=== PATIENT | female | born 1950 | race Caucasian/White ===

== ENCOUNTER 2016-12-20 07:22 | Day surgery (SDC) | payer MEDICARE ==
[~2016-12-20] VITALS: Ht 157.5 cm; Wt 70.0 kg
[~2016-12-20 07:22] MED LIST: ACYC-114 PO; LENA10CA PO; LEVO100T5 PO; LORA2ORA2 PO; ROSU10TA PO; VENL75CA PO; [UNRECOGNIZED DRUG - OTHER]; aspirin PO; vitamin D3
[2016-12-20 08:00] VITALS: BP 119/71
[2016-12-20] MEDS ORDERED: FENTANYL PF 100 MCG/2ML ONE ×2 (08:41→08:42)
[2016-12-20] MEDS ORDERED: MIDAZOLAM 1 MG/ML, 5ML ONE (08:41)
[2016-12-20] MEDS ORDERED: FLUMAZENIL 0.1 MG/1 ML, 5ML ONE (08:42)
[2016-12-20] MEDS ORDERED: NALOXONE 1 MG/ML, 2ML ONE (08:42)
[2016-12-20] MEDS ORDERED: LIDOCAINE 1%, 20ML ONE (08:46)
== END 2016-12-20 17:00 | disposition home or self-care (01) ==
LOC: OUT 07:22
PROVIDERS: ATTEND Specialist
DX: D61.818 Other pancytopenia (principal); E03.9 Hypothyroidism, unspecified; F32.9 Major depressive disorder, single episode, unspecified; Z90.710 Acquired absence of both cervix and uterus; Z98.51 Tubal ligation status; Z82.0 Family history of epilepsy and other diseases of the nervous system
CPT/HCPCS: 36415; 38221; 77012; 85025; 85097; 88237; 88264; 88280; 88305; 88311; 88341; 88342; 88360; G0364; J2250; J3010; J3490; 88313; 99156; 99157; G0461; J2310

== ENCOUNTER 2017-01-09 22:56 | Emergency (ER) | payer MEDICARE ==
[~2017-01-09] VITALS: Ht 157.5 cm; Wt 74.1 kg
[2017-01-10 01:23] LABS: BLOOD UREA NITROGEN 20 mg/dL (7-18)
[2017-01-10 02:24] VITALS: BP 136/71
[2017-01-10 02:29] LABS: PATH.CAST-FLAG NOT PRESENT; SPERM-FLAG NOT PRESENT; SRC-FLAG NOT PRESENT; XTAL-FLAG NOT PRESENT; YLC-FLAG NOT PRESENT
== END 2017-01-10 02:26 | disposition home or self-care (01) ==
LOC: ED 01-10 02:20
DX: R50.9 Fever, unspecified (principal); R21 Rash and other nonspecific skin eruption; E03.9 Hypothyroidism, unspecified
CPT/HCPCS: 36415; 80048; 81001; 82040; 85025; 87040; 87086; 99284

== ENCOUNTER 2017-04-24 05:58 | Day surgery (SDC) | payer MEDICARE ==
[~2017-04-24] VITALS: Ht 157.5 cm; Wt 69.4 kg
[2017-04-24] MEDS ORDERED: SODIUM CHLORIDE 0.9% 1,000 ML IV SCH (06:53)
[2017-04-24] MEDS ORDERED: LEVO88TA4 PO (06:56)
[2017-04-24] MEDS ORDERED: ROSU20TA PO (06:56)
[2017-04-24] MEDS ORDERED: ASPI-496 PO (06:56)
[2017-04-24] MEDS ORDERED: VENL37.52 PO (06:56)
[2017-04-24 06:57] VITALS: BP 147/76
[2017-04-24 07:13] LABS: HEMATOCRIT 38.7 % (34.6-47.8); HEMOGLOBIN 12.7 g/dL (11.7-16.4); WHITE BLOOD COUNT 5.6 x10^3/uL (3.4-10)
[2017-04-24] MEDS ORDERED: LIDOCAINE 1%, 20ML ONE (08:14)
[2017-04-24] MEDS ORDERED: FENTANYL PF 100 MCG/2ML ONE (08:15)
[2017-04-24] MEDS ORDERED: MIDAZOLAM 1 MG/ML, 5ML ONE (08:16)
[2017-04-24] MEDS ORDERED: NALOXONE 1 MG/ML, 2ML ONE (08:16)
[2017-04-24] MEDS ORDERED: FLUMAZENIL 0.1 MG/1 ML, 5ML ONE (08:16)
== END 2017-04-24 10:15 | disposition home or self-care (01) ==
LOC: OUT 05:58
PROVIDERS: ATTEND Specialist
DX: C90.00 Multiple myeloma not having achieved remission (principal); F32.9 Major depressive disorder, single episode, unspecified; E03.9 Hypothyroidism, unspecified; Z98.51 Tubal ligation status; Z98.890 Other specified postprocedural states; Z90.710 Acquired absence of both cervix and uterus
CPT/HCPCS: 36415; 38221; 77012; 85025; 85097; 88237; 88264; 88280; 88305; 88311; 88313; 99156; G0364; J2250; J3010; J3490; J7030; 99157; J2310

== ENCOUNTER → 2018-10-30 | Outpatient (CLI) | payer MEDICARE ==
[~2018-10-30] MED LIST changes: +ASPI-496 PO; +LEVO88TA4 PO; -ROSU10TA PO; +ROSU10TA2 PO; +ROSU20TA2 PO; +VENL37.52 PO
== END | disposition home or self-care (01) ==
LOC: ROC 07:25
PROVIDERS: ATTEND Radiology Radiation Oncology
DX: Z08 Encounter for follow-up examination after completed treatment for malignant neoplasm (principal); M89.9 Disorder of bone, unspecified; E03.9 Hypothyroidism, unspecified; Z85.79 Personal history of other malignant neoplasms of lymphoid, hematopoietic and related tissues; Z90.49 Acquired absence of other specified parts of digestive tract; Z90.710 Acquired absence of both cervix and uterus; Z80.3 Family history of malignant neoplasm of breast; Z80.1 Family history of malignant neoplasm of trachea, bronchus and lung; Z80.8 Family history of malignant neoplasm of other organs or systems; Z94.84 Stem cells transplant status; Z88.8 Allergy status to other drugs, medicaments and biological substances
CPT/HCPCS: G0463

== ENCOUNTER → 2020-11-27 | Outpatient (CLI) | payer MEDICARE | END | disposition home or self-care (01) | LOC: ROC 09:15 | PROVIDERS: ATTEND Radiology Radiation Oncology | DX: Z08 Encounter for follow-up examination after completed treatment for malignant neoplasm (principal); C90.02 Multiple myeloma in relapse | CPT/HCPCS: G0463 ==

== ENCOUNTER → 2021-01-15 | Outpatient (CLI) | payer MEDICARE ==
[~2021-01-15] MED LIST changes: -ACYC-114 PO; +ACYC-40 PO
== END | disposition home or self-care (01) ==
LOC: ROC 07:54
PROVIDERS: ATTEND Radiology Radiation Oncology
DX: Z08 Encounter for follow-up examination after completed treatment for malignant neoplasm (principal); C90.02 Multiple myeloma in relapse
CPT/HCPCS: G0463